=== PATIENT | female | born 1950 | race Caucasian/White ===

== ENCOUNTER 2017-03-23 12:26 | Emergency (ER) | payer MEDICARE, OTHER ==
[2017-03-23 12:41] VITALS: BP 163/89
--- NOTE | 2017-03-23 12:46 | EDM.PDOC ---
ED HPI GENERAL MEDICAL PROBLEM - General Chief Complaint: ENT Problem Stated Complaint: LARYNGITIS Time Seen by Provider: 03/23/17 12:45 - History of Present Illness INITIAL COMMENTS - FREE TEXT/NARRATIVE: 66-year-old female presents emergency room with a worsening cough and losing her voice. Patient received vaccination about 2 weeks ago and since then has had this viral type illness with congestion ear discomfort and a worsening cough the cough is persisted a few days ago the cough became moist bringing up a fair amount of sputum. 5 days ago she lost her voice and it has not returned yet. The patient is not having a chest pain chest pressure she has had a recent bypass surgery. Her ear pain has resolved and now is just her voice and this worsening cough. Chest Pain Score (Numeric/FACES): 3 - Related Data Allergies Allergy/AdvReac Type Severity Reaction Status Date / Time codeine Allergy Syncope Verified 03/23/17 12:41 Sulfa (Sulfonamide Allergy Hives Verified 03/23/17 12:41 Antibiotics) Home Meds: Home Meds Furosemide [Lasix] 40 mg PO DAILY PRN 02/02/16 [History] LORazepam [Ativan] 0.5 mg PO BID PRN 02/02/16 [History] Nitroglycerin [Nitrostat] 0.4 mg SL DAILY PRN 02/02/16 [History] Potassium Chloride 20 meq PO DAILY 02/02/16 [History] Psyllium Husk [Metamucil] 1 packet PO ASDIRECTED PRN 02/02/16 [History] Sertraline [Zoloft] 25 mg PO DAILY 02/02/16 [History] Vitamin B Complex 1 tab PO DAILY 02/02/16 [History] Acetaminophen [Tylenol] 325 mg PO Q6H PRN 03/07/16 [History] Aspirin 81 mg PO DAILY 03/07/16 [History] Metoprolol Tartrate 25 mg PO BID 03/07/16 [History] Spironolactone [Aldactone] 25 mg PO DAILY 04/04/16 [History] Rosuvastatin Calcium [Crestor] 5 mg PO ASDIRECTED 06/11/16 [History] Albuterol Sulfate [Proventil Hfa] 6.7 gm IH Q4H #1 hfa.aer.ad 03/23/17 [Rx] Doxycycline [Vibramycin] 100 mg PO BID #20 tablet 03/23/17 [Rx] Magnesium 500 mg PO DAILY 03/23/17 [History] Past Medical History Other HEENT History: Currently wearing glasses. Pt stated she feels her vision is starting to get worse when she reads. Other Cardiovascular History: Ablasion done in 2002 Other Genitourinary History: Bladder cancer Other OB/BYN History: Hysterectomy Other Musculoskeletal History: Pain in muscles of the legs bilaterally. Pt stated left is usually worse. Psychiatric History: Reports: Anxiety, Depression Oncologic (Cancer) History: Reports: Bladder - Infectious Disease History Infectious Disease History: Reports: Measles - Past Surgical History GI Surgical History: Reports: Cholecystectomy Other GI Surgeries/Procedures: Gall bladder removed in 2012 Social & Family History - Tobacco Use Smoking Status *Q: Former Smoker Years of Tobacco use: 10 Used Tobacco, but Quit: Yes Month Tobacco Last Used: 40 years ago - Recreational Drug Use Recreational Drug Use: No ED ROS ENT - Review of Systems Review Of Systems: See Below Constitutional: Reports: No Symptoms. Denies: Fever, Chills Respiratory: Reports: Cough, Sputum. Denies: Shortness of Breath, Wheezing, Pleuritic Chest Pain Cardiovascular: Denies: Chest Pain, Dyspnea on Exertion, Edema GI/Abdominal: Reports: No Symptoms : Reports: No Symptoms Neurological: Reports: No Symptoms ED EXAM, ENT - Physical Exam Exam: See Below General Appearance: Alert, No Apparent Distress Eye Exam: Bilateral Eye: Normal Inspection Ears: Normal External Exam, Normal Canal, Hearing Grossly Normal, Normal TMs Nose: Normal Inspection, Normal Mucousa, No Blood Mouth/Throat: Normal Inspection, Normal Gums, Normal Lips, Normal Oropharynx Head: Atraumatic, Normocephalic Neck: Normal Inspection, Supple, Non-Tender, Full Range of Motion. No: Lymphadenopathy (L), Lymphadenopathy (R) Respiratory/Chest: No Respiratory Distress, Lungs Clear, Normal Breath Sounds Cardiovascular: Regular Rate, Rhythm, No Edema, No Murmur Course - Vital Signs Last Recorded V/S: Last Vital Signs Temp 36.4 C 03/23/17 12:35 Pulse 59 L 03/23/17 12:35 Resp 20 03/23/17 12:35 BP 163/89 H 03/23/17 12:35 Pulse Ox 97 03/23/17 12:35 - Re-Assessments/Exams Free Text/Narrative Re-Assessment/Exam: 03/23/17 14:07 We discussed get a chest x-ray patient agrees to hold off on this at this point it sounds like she's got a bronchitis is certainly sounds like it was viral however now with the moistening wet cough could be getting secondarily infected we'll start her on doxycycline in addition to an albuterol inhaler. Patient agrees to return to the emergency room with any worsening problems and will follow up with her regular physician if needed at the end of the week. Departure - Departure Time of Disposition: 13:53 Disposition: Home, Self-Care 01 Clinical Impression: Bronchitis, Laryngitis - Discharge Information Prescriptions: Albuterol Sulfate [Proventil Hfa] 6.7 gm IH Q4H #1 hfa.aer.ad Doxycycline [Vibramycin] 100 mg PO BID #20 tablet Referrals: Meet Mckeon MD [Primary Care Provider] - Forms: ED Department Discharge Additional Instructions: Return to the emergency room with any questions problems worsening symptoms. Follow-up with your regular physician at the end of this week if needed. You have been started on doxycycline this is an antibiotic take it one twice daily until all gone. While taking the doxycycline do not take your magnesium. You've also been started on albuterol inhaler 2 puffs every 4 hours while awake after you're feeling better continue to use this 2 puffs 3-4 times a day for another couple of weeks.
== END 2017-03-23 14:05 | disposition home or self-care (01) ==
LOC: JD.ED 12:26
DX: J40 Bronchitis, not specified as acute or chronic (principal); J04.0 Acute laryngitis; Z79.899 Other long term (current) drug therapy; Z79.82 Long term (current) use of aspirin; Z87.891 Personal history of nicotine dependence; Z88.2 Allergy status to sulfonamides; Z88.5 Allergy status to narcotic agent
CPT/HCPCS: 99283

== ENCOUNTER 2019-05-02 12:07 | Emergency (ER) | payer MEDICARE, OTHER ==
[2019-05-02 12:28] VITALS: BP 158/79; PULSE 60
--- NOTE | 2019-05-02 12:28 | EDM.PDOC ---
ED HPI GENERAL MEDICAL PROBLEM - General Chief Complaint: Respiratory Problem Stated Complaint: COUGH AND CONGESTION Time Seen by Provider: 05/02/19 12:19 Source of Information: Reports: Patient, Family, RN Notes Reviewed History Limitations: Reports: No Limitations - History of Present Illness INITIAL COMMENTS - FREE TEXT/NARRATIVE: Patient is a 68-year-old female who presents to the ED for evaluation of cough and congestion. The patient notes for around 10 days now, the patient has had a cough, that has been intermittent, and worse at night. She states that this is a productive cough, and she does get up yellow/green sputum most times with the cough. The patient notes that she did have a sore throat as well, this has since resolved. She further notes now that she has feelings of chest congestion , and over the last 48 hours, she has increased shortness of breath, with any sort of movement at all. She states even walking across the room makes her winded. Patient notes she has had some low-grade fevers at home, and has chills at night, for where she has to put on extra warm clothing to get warm. Patient does complain of some nausea, that is present only after coughing fits, she states she does have issues with chronic constipation, but over the last 2 mornings however she has had some diarrhea like stools. Patient further notes a decreased appetite and feelings of general weakness as well. The patient denies any abdominal pain, or any dysuria, urinary frequency or urgency. Patient's primary care provider is Dr. Mckeon. Patient denies any previous lung history like asthma or COPD, she states she used to smoke but quit around 40 years ago. She does note that she has had bypass surgery as well, and her next cardiology visit is on May 06. - Related Data Allergies Allergy/AdvReac Type Severity Reaction Status Date / Time codeine Allergy Syncope Verified 03/23/17 12:41 Sulfa (Sulfonamide Allergy Hives Verified 03/23/17 12:41 Antibiotics) Home Meds: Home Meds Furosemide [Lasix] 40 mg PO DAILY PRN 02/02/16 [History] LORazepam [Ativan] 0.5 mg PO BID PRN 02/02/16 [History] Nitroglycerin [Nitrostat] 0.4 mg SL DAILY PRN 02/02/16 [History] Psyllium Husk [Metamucil] 1 packet PO ASDIRECTED PRN 02/02/16 [History] Sertraline [Zoloft] 25 mg PO DAILY 02/02/16 [History] Vitamin B Complex 1 tab PO DAILY 02/02/16 [History] Acetaminophen [Tylenol] 325 mg PO Q6H PRN 03/07/16 [History] Aspirin 81 mg PO DAILY 03/07/16 [History] Metoprolol Tartrate 25 mg PO BID 03/07/16 [History] Spironolactone [Aldactone] 25 mg PO DAILY 04/04/16 [History] Rosuvastatin Calcium [Crestor] 10 mg PO ASDIRECTED 06/11/16 [History] Magnesium 500 mg PO DAILY 03/23/17 [History] Albuterol [Ventolin HFA] 2 puff INH QID PRN #1 inhaler 05/02/19 [Rx] Doxycycline [Vibramycin] 100 mg PO BID #14 tab 05/02/19 [Rx] Promethazine HCl/Codeine [Prometh-Codein 6.25-10 mg/5 ml] 5 ml PO QPM PRN #100 ml 05/02/19 [Rx] Past Medical History Other HEENT History: Currently wearing glasses. Pt stated she feels her vision is starting to get worse when she reads. 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 Pt stated left is usually worse. Psychiatric History: Reports: Anxiety, Depression Oncologic (Cancer) History: Reports: Bladder - Infectious Disease History Infectious Disease History: Reports: Measles - Past Surgical History GI Surgical History: Reports: Cholecystectomy Other GI Surgeries/Procedures: Gall bladder removed in 2012 Social & Family History - Family History Cardiac: Reports: Bypass - Caffeine Use Caffeine Use: Reports: Coffee ED ROS GENERAL - Review of Systems Review Of Systems: See Below Constitutional: Reports: Fever, Chills, Malaise (generalized), Decreased Appetite HEENT: Denies: Sinus Problem Respiratory: Reports: Shortness of Breath, Cough, Sputum (yellow/green colored sputum). Denies: Wheezing, Hemoptysis Cardiovascular: Denies: Chest Pain, Lightheadedness Endocrine: Reports: No Symptoms GI/Abdominal: Reports: Diarrhea (2x episodes in last 48 hrs), Nausea (after coughing fits) : Reports: No Symptoms Musculoskeletal: Reports: No Symptoms Skin: Reports: No Symptoms Neurological: Reports: No Symptoms Psychiatric: Reports: No Symptoms Hematologic/Lymphatic: Reports: No Symptoms Immunologic: Reports: No Symptoms ED EXAM, GENERAL - Physical Exam Exam: See Below Exam Limited By: No Limitations General Appearance: Alert, WD/WN, No Apparent Distress Eye Exam: Bilateral Eye: EOMI, Normal Inspection, PERRL Ears: Normal External Exam, Normal Canal, Hearing Grossly Normal, Normal TMs Nose: Normal Inspection, Normal Mucosa, No Blood Throat/Mouth: Normal Inspection, Normal Lips, Normal Teeth, Normal Gums, Normal Oropharynx (mildly dry oral mucosa), Normal Voice, No Airway Compromise Head: Atraumatic, Normocephalic Neck: Normal Inspection, Supple, Non-Tender, Full Range of Motion Respiratory/Chest: No Respiratory Distress, Lungs Clear, Normal Breath Sounds, No Accessory Muscle Use, Chest Non-Tender Cardiovascular: Normal Peripheral Pulses, Regular Rate, Rhythm, No Edema, No Murmur GI/Abdominal: Normal Bowel Sounds, Soft, Non-Tender, No Distention, No Mass Extremities: Normal Inspection, Normal Capillary Refill Neurological: Alert, Oriented, Normal Cognition, No Motor/Sensory Deficits Psychiatric: Normal Affect, Normal Mood Skin Exam: Warm, Dry, Intact, Normal Color, No Rash Course - Vital Signs Last Recorded V/S: Last Vital Signs Temp 98.7 F 05/02/19 12:20 Pulse 60 05/02/19 12:20 Resp 18 05/02/19 12:20 BP 158/79 H 05/02/19 12:20 Pulse Ox 99 05/02/19 12:47 - Orders/Labs/Meds Orders: Active Orders 24 hr Category Date Time Status Peripheral IV Care [RC] . DIRECTED Care 05/02/19 12:38 Ordered RT Aerosol Therapy [RC] ASDIRECTED Care 05/02/19 12:38 Ordered Chest 2V [CR] Stat Exams 05/02/19 12:37 Ordered Sodium Chloride 0.9% [Normal Saline] 1,000 ml Med 05/02/19 12:38 Ordered IV ONETIME Sodium Chloride 0.9% [Saline Flush] Med 05/02/19 12:37 Ordered 10 ml FLUSH ASDIRECTED PRN Peripheral IV Insertion Adult [OM.PC] Routine Oth 05/02/19 12:37 Ordered Medication Orders Sodium Chloride (Normal Saline) 1,000 mls @ 500 mls/hr IV ONETIME ONE Stop: 05/02/19 14:37 Last Admin: 05/02/19 12:57 Dose: 500 mls/hr Sodium Chloride (Saline Flush) 10 ml FLUSH ASDIRECTED PRN PRN Reason: Keep Vein Open Last Admin: 05/02/19 12:57 Dose: 10 ml Labs: Laboratory Tests 05/02/19 05/02/19 Range/Units 12:50 12:50 WBC 8.09 (3.98-10.04) K/mm3 RBC 5.25 H (3.98-5.22) M/mm3 Hgb 15.4 (11.2-15.7) gm/dl Hct 45.1 H (34.1-44.9) % MCV 85.9 (79.4-94.8) fl MCH 29.3 (25.6-32.2) pg MCHC 34.1 (32.2-35.5) g/dl RDW Std Deviation 41.3 (36.4-46.3) fL Plt Count 334 (182-369) K/mm3 MPV 8.5 L (9.4-12.3) fl Neutrophils % (Manual) 60 (40-60) % Band Neutrophils % 0 (0-10) % Lymphocytes % (Manual) 27 (20-40) % Atypical Lymphs % 0 % Monocytes % (Manual) 10 (2-10) % Eosinophils % (Manual) 3 (0.7-5.8) % Basophils % (Manual) 0 L (0.1-1.2) Platelet Estimate Adequate RBC Morph Comment Normal Sodium 137 (136-145) mEq/L Potassium 3.7 (3.5-5.1) mEq/L Chloride 102 (98-107) mEq/L Carbon Dioxide 28 (21-32) mEq/L Anion Gap 10.7 (5-15) BUN 14 (7-18) mg/dL Creatinine 0.8 (0.55-1.02) mg/dL Est Cr Clr Drug Dosing 62.13 mL/min Estimated GFR (MDRD) > 60 (>60) mL/min BUN/Creatinine Ratio 17.5 (14-18) Glucose 91 (80-115) mg/dL Calcium 9.3 (8.5-10.1) mg/dL Total Bilirubin 0.6 (0.2-1.0) mg/dL AST 21 (15-37) U/L ALT 30 (14-59) U/L Alkaline Phosphatase 82 (46-116) U/L Total Protein 7.5 (6.4-8.2) g/dl Albumin 4.1 (3.4-5.0) g/dl Globulin 3.4 gm/dL Albumin/Globulin Ratio 1.2 (1-2) Meds: Medications Generic Name Dose Route Start Last Admin Trade Name Freq PRN Reason Stop Dose Admin Sodium Chloride 1,000 mls @ 500 mls/hr 05/02/19 12:38 05/02/19 12:57 Normal Saline IV 05/02/19 14:37 500 mls/hr ONETIME ONE Administration Sodium Chloride 10 ml 05/02/19 12:37 05/02/19 12:57 Saline Flush FLUSH 10 ml ASDIRECTED PRN Administration Keep Vein Open Discontinued Medications Generic Name Dose Route Start Last Admin Trade Name Freq PRN Reason Stop Dose Admin Albuterol/Ipratropium 3 ml 05/02/19 12:38 05/02/19 12:47 Duoneb 3.0-0.5 Mg/3 Ml NEB 05/02/19 12:39 3 ml ONETIME ONE Administration Ondansetron HCl 4 mg 05/02/19 12:38 05/02/19 12:57 Zofran IVPUSH 05/02/19 12:39 4 mg ONETIME ONE Administration - Re-Assessments/Exams Free Text/Narrative Re-Assessment/Exam: 05/02/19 13:10 Patient presents to the ED for the evaluation of cough and chest congestion. Did order chest x-ray, CBC, CMP, some IV fluids, DuoNeb and 4 mg of IV Zofran for initial management. 05/02/19 13:36 Chest x-ray is done, and labs are resulted. Chest x-ray demonstrates some small areas of basilar atelectasis on the left lung and possibly on the right lung as well. No obvious consolidative process noted. This was reviewed by myself and Dr. Solano. Labs demonstrated normal white count with no left shift , and metabolic panel is within normal limits as well. Departure - Departure Time of Disposition: 13:59 Disposition: Home, Self-Care Condition: Fair Clinical Impression: Community acquired pneumonia Qualifiers: Laterality: unspecified laterality Qualified Code(s): J18.9 - Pneumonia, unspecified organism - Discharge Information *PRESCRIPTION DRUG MONITORING PROGRAM REVIEWED*: Yes *COPY OF PRESCRIPTION DRUG MONITORING REPORT IN PATIENT KATYA: No Prescriptions: Albuterol [Ventolin HFA] 2 puff INH QID PRN #1 inhaler PRN Reason: Dyspnea Doxycycline [Vibramycin] 100 mg PO BID #14 tab Promethazine HCl/Codeine [Prometh-Codein 6.25-10 mg/5 ml] 5 ml PO QPM PRN #100 ml PRN Reason: Cough Instructions: Community-Acquired Pneumonia, Adult, [id number] Referrals: Meet Mckeon MD [Primary Care Provider] - Forms: ED Department Discharge Additional Instructions: You were evaluated in the ER today regarding your increased shortness of breath and cough. Your x-ray did show a small amount of concern on the base of your lungs, which is consistent with atelectasis. This is a process collapses on itself, and you are not able to exchange oxygen as you normally would. There is no obvious sign of pneumonia on your chest x-ray, however due to your length of symptoms, and reported fever and productive cough, it is likely that you have early pneumonia or community-acquired pneumonia. You have been started on an antibiotic, doxycycline 100 mg twice daily x7 days, albuterol inhaler as needed , take 2 puffs every 4 hours as needed, and promethazine/codeine cough syrup. Please take 5 mL as needed for cough. Current recommendations state that you should take your doxycycline 2 hours before you take your magnesium supplementation, as magnesium supplementation can cause decreased blood levels of the doxycycline. Your prescriptions were electronically sent to [facility] located near [facility], this pharmacy is only open from 12 to 4 PM today, you will need to go there during this timeframe to obtain this medication and take as prescribed. Please try to increase your oral fluid intake, stay well-hydrated, get plenty of rest, you should feel better in a few days time. Recommend follow-up with your primary care physician sometime next week for recheck of your symptoms and to make sure that your disease course is getting better as expected. Please return to the ED if your symptoms change or worsen. - My Orders Last 24 Hours: My Active Orders 05/02/19 12:37 Chest 2V [CR] Stat Sodium Chloride 0.9% [Saline Flush] 10 ml FLUSH ASDIRECTED PRN Peripheral IV Insertion Adult [OM.PC] Routine 05/02/19 12:38 Peripheral IV Care [RC] . DIRECTED RT Aerosol Therapy [RC] ASDIRECTED Sodium Chloride 0.9% [Normal Saline] 1,000 ml IV ONETIME - Assessment/Plan Last 24 Hours: My Active Orders 05/02/19 12:37 Chest 2V [CR] Stat Sodium Chloride 0.9% [Saline Flush] 10 ml FLUSH ASDIRECTED PRN Peripheral IV Insertion Adult [OM.PC] Routine 05/02/19 12:38 Peripheral IV Care [RC] . DIRECTED RT Aerosol Therapy [RC] ASDIRECTED Sodium Chloride 0.9% [Normal Saline] 1,000 ml IV ONETIME
[2019-05-02] MEDS ORDERED: Sodium Chloride 0.9% 10 ML Syringe FLUSH PRN (12:37)
[2019-05-02] MEDS ORDERED: Albuterol/Ipratropium 3.0-0.5 MG/3 ML Neb Soln NEB ONE (12:38)
[2019-05-02] MEDS ORDERED: Ondansetron 4 MG/2 ML SDV IVPUSH ONE (12:38)
[2019-05-02] MEDS ORDERED: Sodium Chloride 0.9% 1,000 ML IV ONE (12:38)
--- NOTE | 2019-05-03 09:12 | CR ---
Chest: Two views of the chest were obtained. Comparison: Prior chest x-ray of 02/02/16. Heart size is normal. Tortuous thoracic aorta is seen. Sternotomy wires are noted as well as surgical clips from prior CABG. Minimal linear scarring within the left base. Lungs otherwise are clear with no acute parenchymal change. Bony structures show diffuse disc space narrowing within the spine. Surgical clips are noted within the upper abdomen presumably from prior cholecystectomy. Impression: 1. Interval CABG from prior exam. 2. Other findings. Nothing acute is suspected. Diagnostic code #2 This report was dictated in [place] Standard Time
== END 2019-05-02 14:21 | disposition home or self-care (01) ==
LOC: JD.ED 12:07
DX: J18.9 Pneumonia, unspecified organism (principal); F41.9 Anxiety disorder, unspecified; F32.9 Major depressive disorder, single episode, unspecified; Z79.899 Other long term (current) drug therapy; Z79.82 Long term (current) use of aspirin; Z88.5 Allergy status to narcotic agent; Z88.2 Allergy status to sulfonamides
CPT/HCPCS: 36415; 71046; 80053; 85007; 85027; 94640; 96361; 96374; 99285; J2405; J7040; 99283; J7030; J7620-GY

== ENCOUNTER 2022-10-11 05:38 | Emergency (ER) | payer MEDICARE, OTHER ==
[2022-10-11] MEDS ORDERED: Aspirin 81 MG Tab.Chew PO ONE (05:45)
[2022-10-11] MEDS ORDERED: Sodium Chloride 0.9% 10 ML Syringe FLUSH PRN (05:45)
[2022-10-11 05:52] VITALS: BP 141/68; PULSE 66
[2022-10-11 06:00] LABS: BASOPHILS ABSOLUTE AUTO 0.01 K/mm3 (0.01-0.08); BASOPHILS PERCENT AUTO 0.1 % (0.1-1.2); EOSINOPHILS ABSOLUTE AUTO 0.12 K/mm3 (0.04-0.36); EOSINOPHILS PERCENT AUTO 1.7 (0.7-5.8); HEMATOCRIT 42.3 % (34.1-44.9); HEMOGLOBIN 14.4 gm/dl (11.2-15.7); IMMATURE GRAN ABSOLUTE AUTO 0.01 K/mm3 (0.00-0.10); IMMATURE GRAN PERCENT AUTO 0.1 % (<=1.0); LYMPHOCYTES ABSOLUTE AUTO 1.59 K/mm3 (1.18-3.74); LYMPHOCYTES PERCENT AUTO 22.5 % (19.3-51.7); MEAN CORPUSCULAR HEMOGLOBIN 29.6 pg (25.6-32.2); MEAN PLATELET VOLUME 8.6 fl (9.4-12.3); MONOCYTES ABSOLUTE AUTO 0.81 K/mm3 (0.24-0.36); MONOCYTES PERCENT AUTO 11.5 % (4.7-12.5); NEUTROPHILS ABSOLUTE AUTO 4.53 K/mm3 (1.56-6.13); NEUTROPHILS PERCENT AUTO 64.1 % (34.0-71.1); PLATELET COUNT,PLT 326 K/mm3 (182-369); RED BLOOD CELL COUNT 4.86 M/mm3 (3.98-5.22); WHITE BLOOD CELL COUNT,WBC 7.07 K/mm3 (3.98-10.04)
[2022-10-11 06:19] LABS: INR 0.95; PROTHROMBIN TIME 10.2 SECONDS (9.7-12.0)
[2022-10-11 06:23] LABS: D-DIMER QUANTITATIVE 0.61 mg/L (0.19-0.50)
[2022-10-11 06:31] LABS: ALBUMIN 3.5 g/dl (3.4-5.0); ANION GAP 12.7 (5-15); BILIRUBIN TOTAL 0.8 mg/dL (0.2-1.0); BUN/CREATININE RATIO 14.4 (14-18); CALCIUM 9.3 mg/dL (8.5-10.1); CREATININE 0.9 mg/dL (0.55-1.02); EST CRCL DRUG DOSING (CG) 52.12 mL/min; MAGNESIUM 1.9 mg/dL (1.8-2.4); POTASSIUM,K 3.7 mEq/L (3.5-5.1); PROTEIN TOTAL,TP 7.2 g/dl (6.4-8.2)
[2022-10-11] MEDS ORDERED: Furosemide 40 MG/4 ML VIAL IVPUSH ONE (06:38)
[2022-10-11] MEDS ORDERED: Potassium Chloride 20 MEQ Tab.ER PO ONE (06:39)
[2022-10-11] MEDS ORDERED: Levofloxacin/Dextrose 5%-Water 750 MG in Premix Bag 1 BAG IV ONE (07:51)
[2022-10-11] MEDS ORDERED: metroNIDAZOLE/Normal Saline 500 MG in Premix Bag 1 BAG IV ONE (07:53)
== END 2022-10-11 09:55 | disposition home or self-care (01) ==
LOC: JD.ED 05:38
DX: K57.92 Diverticulitis of intestine, part unspecified, without perforation or abscess without bleeding (principal); I10 Essential (primary) hypertension; I25.10 Atherosclerotic heart disease of native coronary artery without angina pectoris; Z79.82 Long term (current) use of aspirin; Z79.899 Other long term (current) drug therapy; Z88.5 Allergy status to narcotic agent; Z88.2 Allergy status to sulfonamides; Z95.1 Presence of aortocoronary bypass graft
CPT/HCPCS: 36415; 71045; 74177; 80053; 83605; 83690; 83735; 83880; 84484; 85025; 85379; 85610; 93005; 96365; 96366; 96368; 96375; 99284; A9270; J1940; J1956; J3490; 93010

== ENCOUNTER 2023-02-08 09:09 | Emergency (ER) | payer MEDICARE, OTHER ==
[2023-02-08] MEDS: Sodium Chloride 0.9% 10 ML Syringe FLUSH PRN ×2 (09:43→10:29)
[2023-02-08 09:50] LABS: BASOPHILS PERCENT AUTO 0.4 % (0.0-1.0); EOSINOPHILS ABSOLUTE AUTO 0.1 K/mm3 (0.0-0.4); HEMOGLOBIN 14.8 gm/dl (12.0-16.0); IMMATURE GRAN ABSOLUTE AUTO 0.03 K/mm3 (0.00-0.05); IMMATURE GRAN PERCENT AUTO 0.4 % (0.0-0.4); LYMPHOCYTES ABSOLUTE AUTO 1.3 K/mm3 (1.0-4.8); MEAN CORPUSCULAR HGB CONC 36.1 g/dl (32.0-36.0); MEAN CORPUSCULAR VOLUME 85.8 fl (83.0-99.0); MEAN PLATELET VOLUME 8.2 fl (9.4-12.3); MONOCYTES ABSOLUTE AUTO 0.5 K/mm3 (0.0-0.8); MONOCYTES PERCENT AUTO 6.4 % (0.0-8.0); NEUTROPHILS ABSOLUTE AUTO 6.3 K/mm3 (1.8-7.7); NEUTROPHILS PERCENT AUTO 75.8 % (41.0-71.0); PLATELET COUNT,PLT 287 K/mm3 (150-400); RED BLOOD CELL COUNT 4.78 M/mm3 (4.10-5.30); WHITE BLOOD CELL COUNT,WBC 8.27 K/mm3 (3.9-11.3)
[2023-02-08] MEDS ORDERED: Iopamidol 612 MG/ML 30 ML SDV IVPUSH ONE ×3 (10:10→10:11)
[2023-02-08 10:18] LABS: ALBUMIN 3.8 g/dl (3.4-5.0); ANION GAP 15.8 (5-15); BUN/CREATININE RATIO 12.5 (14-18); CALCIUM 9.4 mg/dL (8.5-10.1); CREATININE 0.8 mg/dL (0.55-1.02); EST CRCL DRUG DOSING (CG) 56.36 mL/min; POTASSIUM,K 3.8 mEq/L (3.5-5.1)
[2023-02-08 10:19] LABS: A/G RATIO 1.2 (1-2); BILIRUBIN TOTAL 0.8 mg/dL (0.2-1.0)
[2023-02-08 11:28] LABS: APPEARANCE,URINE CLEAR (Clear); BILIRUBIN,URINE NEGATIVE (Negative); COLOR,URINE YELLOW (Yellow); GLUCOSE,URINE NEGATIVE (Negative); KETONES,URINE NEGATIVE (Negative); LEUKOCYTE ESTERASE,URINE NEGATIVE (Negative); NITRITE,URINE NEGATIVE (Negative); OCCULT BLOOD,URINE NEGATIVE (Negative); PROTEIN,URINE NEGATIVE (Negative); UROBILINOGEN,URINE 0.2 (0.2-1.0)
[2023-02-08 11:40] LABS: BACTERIA,URINE RARE /hpf (FEW); MUCUS,URINE NOT SEEN /hpf (FEW); RBC,URINE NOT SEEN /hpf (0-5); SQUAMOUS EPITHELIAL CELLS,UR 0-5 /hpf (0-5); WBC,URINE NOT SEEN /hpf (0-5)
[2023-02-08 12:17] VITALS: BP 119/71; PULSE 56
== END 2023-02-08 12:15 | disposition home or self-care (01) ==
LOC: JD.ED 09:09
DX: R10.9 Unspecified abdominal pain (principal); Z90.49 Acquired absence of other specified parts of digestive tract; Z90.710 Acquired absence of both cervix and uterus; Z88.2 Allergy status to sulfonamides; Z88.5 Allergy status to narcotic agent; Z79.82 Long term (current) use of aspirin; Z79.899 Other long term (current) drug therapy
CPT/HCPCS: 36415; 74177; 80053; 81001; 85025; 99284; J3490; Q9967